=== PATIENT | female | born 2005 | race Caucasian/White ===

== ENCOUNTER → 2024-07-02 12:45 | Outpatient (REF) | payer OTHER, SELFPAY | LOC: HWRAD 12:45 | PROVIDERS: ATTENDING PHYSICIAN Nurse Practitioner | DX: R05.1 Acute cough (principal) | CPT/HCPCS: 71046 ==

== ENCOUNTER → 2024-12-04 11:44 | Outpatient (REF) | payer BC, SELFPAY | LOC: RAD 11:44 | PROVIDERS: ATTENDING PHYSICIAN Nurse Practitioner | DX: M54.2 Cervicalgia (principal) | CPT/HCPCS: 72052 ==

== ENCOUNTER 2025-06-09 20:27 | Emergency (ER) | payer BC, SELFPAY ==
[2025-06-09 20:30] VITALS: BP 112/81
[2025-06-09 20:51] LABS: Hematocrit 40.0 % (37.0-47.0); Hemoglobin 14.3 g/dL (12.0-16.0); Mean Corp Hgb Conc. 35.8 g/dL (33.0-37.0); Mean Corpuscular Volume 87.9 fL (81.0-99.0); Nucleated Red Blood Cells % 0 %; Platelet Count 288 10^3/uL (130-400); Red Cell Dist. Width 11.5 % (11.5-14.5)
[2025-06-09 21:06] LABS: HCG, Serum Qualitative Screen Negative
[2025-06-09 21:10] LABS: ALT (SGPT) 13 U/L (0-35); AST (SGOT) 19 U/L (14-36); Albumin 5.3 g/dl (3.5-5.0); Alkaline Phosphatase 56 U/L (38-126); Blood Urea Nitrogen 13 mg/dl (7-17); Calcium 10.1 mg/dl (8.4-10.2); Carbon Dioxide 24 mmol/L (22-30); Chloride 104 mmol/L (98-107); Glucose 90 mg/dl (70-99); Potassium 4.0 mmol/L (3.5-5.1); Sodium 140 mmol/L (135-145); Total Protein 8.7 g/dl (6.3-8.2); eGFR > 60.00
[2025-06-09 22:56] VITALS: BP 123/77
[2025-06-09 23:00] VITALS: BP 111/75
[2025-06-09 23:23] VITALS: BMI 27.0
[2025-06-10] VITALS: BP 108/77
[2025-06-10 01:00] VITALS: BP 103/70
[2025-06-10 02:00] VITALS: BP 111/69
[2025-06-10 03:00] VITALS: BP 103/75
[2025-06-10 04:00] VITALS: BP 101/67
--- NOTE | 2025-06-10 04:07 | ED.GENMED ---
History of Present Illness
General
Chief Complaint: Headache
Source: patient and family (Father who is at bedside)
Exam Limitations: none
Time Seen by Provider: 06/10/25 01:38
Nursing documentation reviewed up to this point in time: agreed with except (Patient was hospitalized in April of this year with chest pain found to have elevated troponins not related to CT and echo concerning for potential mild pericarditis. She
was not diagnosed with endocarditis.)
History of Present Illness
History of Present Illness:
This is a 20-year-old female with history of obsessive-compulsive disorder, Tourette's syndrome, schizophrenia, hypothyroidism. Hospitalized April of this year at a hospital in [place] with chest pain, elevated troponins, echocardiogram concerning
for mild pericarditis. Placed on colchicine with relief of chest pain. She remains on colchicine currently at 0.5 mg daily.
Since returning home over a month ago from college patient has had progressive difficulty with her thought processes, difficulty with expressing herself, word searching.
She follows regularly with a psychiatrist, Dr. Phelps, medications have recently been adjusted. She had an initial appointment with [facility] next week but had to cancel this due to a family vacation to [place] next week. She has had sporadic
headaches, an ongoing issue but worse over the past week with an episode of vomiting tonight which prompted ED visit.
She notes some chronic neck pain, worse at nighttime with attempting to sleep. No weakness nor numbness. She has not had a fever nor chills. No vision difficulty.
No history of alcohol nor drug use. She has had no falls.
She admits to frustration with her difficulty current difficulties with expressing herself, difficulty with writing her thoughts and was speaking her thoughts. She adamantly denies suicidal thoughts or plan. She denies auditory nor visual
hallucinations.
Past History
Past History
ED Past Medical History: Asthma, Hypothyroidism, Psychiatric and Other (Acute idiopathic pericarditis April 2025 treated with colchicine.)
ED Past Surgical History: None
Social History
Tobacco: Non-smoker
Alcohol: None
Drug: None
Personal: Single
Living: with family
Employment: Not employed
Family History
Family History: Other (Noncontributory)
Phy Exam
Physical Exam
Physical Exam:
GENERAL: 20-year-old female, sleeping upon initial evaluation. Awakens easily. Once awake she is bright and alert, appears mildly anxious. Speech is stuttering, moderate word searching, stuttering thought processes.
EYE: pupils equal and reactive. anicteric
NECK: Supple, nontender, no meningismus, no significant adenopathy. Full range of motion without difficulty nor pain.
ENT: posterior pharynx is clear, oral mucosa is moist. TM clear b/l, nares patent.
CARDIAC: Regular rate and rhythm. no murmur.
LUNGS: Clear breath sounds bilaterally, no acute respiratory distress, no wheezes/rales/rhonchi
ABDOMEN: Soft, nondistended, without focal tenderness, no r/g, no cvat. normoactive BS.
NEUROLOGICAL: Alert and oriented x3, moderate expressive aphasia, word searching. No dysarthria. No slurring. Motor strength is 5/5 bilaterally. Gross sensation is intact. No tremor. Gait is steady.
SKIN: Warm and dry, normal color, skin intact. No rash.
MUSCULOSKELETAL: No C/C/E. peripheral pulses are full and equal b/l. No palpable tenderness.
PSYCH: Mildly anxious. Moderate difficulty forming complete sentences, jumbled thought processes. Denies suicidal thoughts or plan.
Course
Orders/Labs/Results
Orders:
Orders
06/09/25 20:38
ECG [Electrocardiogram (*1)] Urgent
Reason for Study: Vertigo / Dizzy
EKG- Treatment ONCE
Test Result ONCE
06/09/25 20:41
Complete Blood Count/With Diff Urgent
Comprehensive Metabolic Panel Urgent
HCG, Serum Qualitative Screen Urgent
06/10/25 02:26
CT Head W/o Iv Contrast Urgent
Comment:
Reason For Exam: headache, expressive aphasia
Abnormal Lab Results
06/09/25
20:41
MCH 31.4 H pg
(27.0-31.0)
Absolute Monos (auto) 0.7 H 10^3/uL
(0.1-0.6)
Total Protein 8.7 H g/dl
(6.3-8.2)
Albumin 5.3 H g/dl
(3.5-5.0)
06/09/25 20:41
06/09/25 20:41
Vital Signs
Initial and Last Documented VS:
Initial Vital Signs
Temp Pulse Resp BP Pulse Ox
98.3 F 97 18 112/81 99
06/09/25 20:30 06/09/25 20:30 06/09/25 20:30 06/09/25 20:30 06/09/25 20:30
Last Documented Vital Signs
Temp Pulse Resp BP Pulse Ox
98.3 F 74 12 101/67 96
06/09/25 20:30 06/10/25 04:00 06/10/25 04:00 06/10/25 04:00 06/10/25 04:12
MDM/Problems Addressed
Differential Diagnosis Includes:
Concern for exacerbation of Tourette's/schizophrenia, other consideration is CVA. Will check CT of the head.
Overall well in appearance. Has been sipping water. No vomiting since arrival to the ED and currently denies headache.
She has had no lapse in consciousness, no falls, no evidence of tremor nor movement disorder. Seizure disorder is unlikely as well.
She is afebrile. Vital signs within normal limits and reports no recent fever. Meningitis is doubtful.
Labs are unremarkable.
Will check CT of the head.
Chronic conditions affecting care: Psychiatric illness
Acute Exacerbation and/or Progression of Chronic Illness: Psychiatric illness
*Radiology
Radiology exam reviewed: radiology read reviewed
*Pulse Oximetry
SaO2: 96
Oxygen Mode of Delivery: Room air
Patient hypoxic: no
*Critical Care Note
Total Time (30-74mins, 75-104mins- exclusive of procedures): Not Applicable
Update Note
Update Note:
Patient continues to sleep in undisturbed.
Vital signs remained within normal limits.
CT of the head is unremarkable. No acute intracranial findings.
Patient does continue with some word searching, scattered thought processes which is sporadic in nature. And as per patient and dad the symptoms have been ongoing for at least the past month perhaps longer.
She has no evidence of movement disorder, tremor nor lapse in consciousness. Nothing to suggest seizure.
With reassuring labs, reassuring CT of the head, no evidence of stroke.
At this point no indication for hospitalization but encouraged prompt follow-up with psychiatrist, Dr. Phelps who knows the patient best. Encouraged to reach out to Dr. Phelps today.
Encouraged prompt follow-up with neurology as well.
ED Attending Note
-
Portions of this chart may have been created with voice recognition software.� Occasional wrong word or��sound alike� substitutions may have occurred due to the inherent limitations of voice recognition software.
Discharge Plan
Departure
Patient Disposition: Home (Routine Discharge)
Date of Disposition: 06/10/25
Time of Disposition: 04:07
Patient with high blood pressure during this ER visit?: No
Condition: Good
Discharge Problem:
Expressive aphasia, Headache
Instructions: Tourette syndrome, Migraines (DC)
Referrals:
Minda Doherty CRNP [Family Provider, Family Practice] - Call in 1-3 days for appt
Janet Phelps MD [Non-Admitting Privileges, Psychiatry] - Next open appointment
Interventions
Interventions:
*Risk Screen - Suicide Last Done: 06/09/25 20:30
*General Assessment Last Done: 06/09/25 23:23
*Neglect/Abuse Screening Last Done: 06/09/25 20:30
*ED- Fall Risk Assessment Last Done: 06/09/25 23:23
*ED COVID-19 Vaccine History Last Done: 06/09/25 23:23
*Nursing Disposition Last Done: 06/10/25 04:16
ED- Neurological Assessment Last Done: 06/09/25 23:23
Discharge Date and Time
Discharge Date/Time: 06/10/25 04:16
Print Language: CHADIAN
== END 2025-06-10 04:16 | disposition home or self-care (01) ==
LOC: EMR 20:27
PROVIDERS: Emergency Medicine; EMERGENCY PHYSICIAN Emergency Medicine; FAMILY PHYSICIAN Nurse Practitioner
DX: R47.01 Aphasia (principal); R51.9 Headache, unspecified; F42.9 Obsessive-compulsive disorder, unspecified; F95.2 Tourette's disorder; F20.9 Schizophrenia, unspecified; E03.9 Hypothyroidism, unspecified; J45.909 Unspecified asthma, uncomplicated; Z79.899 Other long term (current) drug therapy
CPT/HCPCS: 99284; 70450; 80053; 84703; 85025; 93005

== ENCOUNTER → 2025-07-05 11:13 | Outpatient (REF) | payer BC, SELFPAY ==
--- NOTE | 2025-07-05 16:53 | EEG.RPT ---
Electroencephalogram Report
Recording
Date of EE07/05/25
Type of EEG: Routine
Length of EEG recordin minutes
Done with Video Recording: Yes
Patient Status: Outpatient
Recording Conditions: Awake and Drowsy
Hyperventilation Performed: Yes
Photic Stimulation Performed: Yes
Report
LESS THAN 1 HOUR EEG INTERPRETATION:
Unremarkable EEG for age
CLINICAL CORRELATION:
A normal EEG does not rule out a diagnosis of epilepsy. If clinical suspicion for seizure persists, a prolonged recording may be warranted.
Clinical correlation is advised.
METHODS:
A 21 channel digitized electroencephalogram (EEG) was performed using the 10/20 international system of electrode placement and one-lead of ECG recorded. The [employer] quantitative EEG system was utilized.
ELECTROENCEPHALOGRAPHER IMPRESSION(S):
Quality of study
Good
Background
There was an unremarkable anterior-posterior voltage gradient of alpha frequency.
With eye opening the background activity changed to a low voltage mixture of frequencies.
There were no significant asymmetries of background activity noted.
Sleep
Drowsiness present
Hyperventilation
No activation
Photic Stimulation
No activation
ECG
Normal sinus rhythm
== END ==
LOC: EEG 11:13
PROVIDERS: ATTENDING PHYSICIAN Psychiatry & Neurology Neurology; FAMILY PHYSICIAN Nurse Practitioner
DX: R41.82 Altered mental status, unspecified (principal)
CPT/HCPCS: 95816

== ENCOUNTER → 2025-10-05 09:03 | Outpatient (REF) | payer BC, SELFPAY ==
--- NOTE | 2025-10-08 18:43 | EEG.RPT ---
Electroencephalogram Report
Recording
Date of EE10/05/25
Type of EEG: Ambulatory
Length of EEG recordin hours 23 minutes
Done with Video Recording: No
Patient Status: Outpatient
Recording Conditions: Awake, Drowsy and Asleep
Hyperventilation Performed: Yes
Photic Stimulation Performed: No
Report
48 HOUR AMBULATORY EEG SUMMARY
AMBULATORY EEG CONCLUSION(S):
Unremarkable EEG for age
CLINICAL CORRELATION:
A normal EEG may not rule out a diagnosis of epilepsy.
The patient�s logs indicated clinical symptoms of headache and a 'caved in' sensation multiple times which were not associated with epileptiform activity. The patient also noted episodic confusion and nausea.
Clinical correlation is advised.
METHODS:
A 21 channel digitized electroencephalogram (EEG) was initiated in the [facility]. The patient wore the device outside of the laboratory and returned after 24 hours for electrode and recorder removal. The 10/20
international system of electrode placement was used with bipolar electrode montage recorded. ECG was monitored. The [employer] quantitative EEG analysis system was utilized.
IMPRESSION(S):
Quality
Fair becoming poor by end of study
Background
Maximal wakefulness: alpha
There was a normal anterior-posterior voltage gradient. With eye opening the background activity changed. No significant asymmetries of background activity noted.
Sleep
Drowsiness was suggested by slowing of the background rhythms
Stage I sleep was recorded
Stage 2 sleep was recorded
Hyperventilation
Failed to produce activation of the record
ECG
Unremarkable
== END ==
LOC: EEG 09:03
PROVIDERS: ATTENDING PHYSICIAN Psychiatry & Neurology Neurology; FAMILY PHYSICIAN Nurse Practitioner
DX: R40.4 Transient alteration of awareness (principal)
CPT/HCPCS: 95708